=== PATIENT | female | born 1955 | race Caucasian/White ===

== ENCOUNTER 2018-09-16 07:57 | Emergency (ER) | payer MEDICAID, OTHER ==
[~2018-09-16] VITALS: Ht 152.4 cm; Wt 49.9 kg
[2018-09-16 08:02] VITALS: BP_SYST 184
--- NOTE | 2018-09-16 08:02 | NUR ---
Pt placed in bed 8
--- NOTE | 2018-09-16 08:10 | NUR ---
Pt presents to ER c/o R knee and R neck pain. Pt ambulatory w/o assistive device, speaking full sentences, denies any other complaints at this time, [id number].
--- NOTE | 2018-09-16 08:35 | NUR ---
ER Dr. Conteh at bedside examining patient.
--- NOTE | 2018-09-16 08:55 | NUR ---
Xray at bedside. [facility] informed Dr. Conteh that pt refused further imaging after taking only 2 xray images.
[2018-09-16] MEDS: LORazepam 1 MG TABLET PO ONE (09:42)
--- NOTE | 2018-09-16 09:43 | NUR ---
Pt medicated as ordered by ER Dr. Conteh. Pt tolerated well; will continue to monitor. Pt states she is able to arrange for a ride home when discharged later.
--- NOTE | 2018-09-16 10:00 | NUR ---
Radha Geomorphologist at bedside speaking with
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
--- NOTE | 2018-09-16 11:35 | NUR ---
JENNIFER LOOP PULLER AT BEDSIDE SPEAKING WITH PT AGAIN UPON PT'S REQUEST.
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
== END 2018-09-16 11:45 | disposition home or self-care (01) ==
LOC: SED 07:57
DX: M25.561 Pain in right knee (principal); I10 Essential (primary) hypertension; F41.9 Anxiety disorder, unspecified; Z88.6 Allergy status to analgesic agent
CPT/HCPCS: 73564; 99283